=== PATIENT | female | born 1950 | race Caucasian/White ===

== ENCOUNTER 2017-12-05 15:22 | Observation (INO) ==
--- NOTE | 2017-12-05 15:59 | ED ---
HPI General Chief complaint: Neuro Symptoms/Deficit Stated complaint: sent by /luisa neuro Time Seen by Provider: 12/05/17 15:42 History of Present Illness HPI narrative: 66-year-old female with a history of hypertension presents to the ED for evaluation of right-sided facial droop that began last night at around 8 PM. Patient states that the symptoms have been progressively worsening since last night. States that now she is unable to completely close her right eye and the right side of her mouth is drooped. She states that she is here visiting from out of town for 1 week. States that she has been here for 3 days and for the past 3 days she has had runny nose and aggravation of her allergies. She denies any fever, chills, nausea, vomiting, headache, dizziness, lightheadedness, vision loss, numbness or tingling, one-sided weakness. She states that she went to an urgent care and they told her she had Tiwari's palsy but to come here for evaluation. States that her right eye has been aggravating her today as well. No other complaints. Related Data Home Medications Medication Instructions Recorded Confirmed hydrochlorothiazide 12.5 mg PO DAILY 12/05/17 12/05/17 levothyroxine 100 mcg PO DAILY 12/05/17 12/05/17 Allergies Allergy/AdvReac Type Severity Reaction Status Date / Time prednisone Allergy Weakness Verified 12/05/17 15:33 Review of Systems ROS: all other systems reviewed are negative [facility] Social History Social History Substance History: No History of Abuse Second Hand Smoke Exposure: No Smoking Status: Never smoker How Often Do You Have a Drink Containing Alcohol: Never Recent Travel in [facility] within the Last 8 Weeks: No Recent Out of Country Travel within the Last 8 Weeks: No Exam Narrative Exam Narrative: GENERAL: Well-nourished and well-developed pleasant patient in no acute distress who is nontoxic appearing. SKIN: Warm and dry. HEAD: Normocephalic and atraumatic. EYES: No injection, drainage, or hyphema noted. PERRLA. EOMI. fluorescein stain reveals no uptake. Right eye with increased area of uptake over the middle of the cornea. No ulcerations or foreign bodies noted. Visual acuity is equal bilaterally. ENT: No nasal drainage noted. Oropharynx is clear. NECK: Supple and the trachea is midline. CARDIOVASCULAR: Regular rate and rhythm. RESPIRATORY: Breath sounds are equal bilaterally with no accessory muscle use, wheezing, rhonchi, or crackles. GASTROINTESTINAL: Abdomen is soft, non-tender, and nondistended. MUSCULOSKELETAL: No obvious deformities, swelling, cyanosis, or ecchymosis is present throughout the upper and lower extremities. Patient has full range of motion without any signs of neurovascular compromise. Distal pulses are 2+ throughout. Strength 5/5 upper and lower extremities and equal bilaterally. NEUROLOGICAL: Awake, alert, and oriented. Normal speech. Patient is able to wrinkle forehead bilaterally, unable to completely close the right eye or raise the corner of right side of mouth. All other cranial nerves are grossly intact. Normal finger to nose testing. Normal rapid alternating movements. Normal heel to mendoza test. Course Initial Documented Vital Signs Temperature 98.3 F 12/05/17 15: Pulse Rate 84 12/05/17 15: Respiratory Rate 16 12/05/17 15: Blood Pressure 196/87 H 12/05/17 15:27 Pulse Oximetry 96 12/05/17 15:27 Last Documented Vital Signs Temperature 98.3 F 12/05/17 15:27 Pulse Rate 71 12/05/17 18:19 Respiratory Rate 18 12/05/17 18:19 Blood Pressure 207/91 H 12/05/17 18:19 Pulse Oximetry 97 12/05/17 18:19 Medical Decision Making NOLA Attestation NOLA supervised visit: Yes Attestation: Please see mid-level provider note for full history and physical. Briefly patient reports that she developed facial droop and inability to close her right eye on last night. On exam patient had the ability to wrinkle her forehead bilaterally, which made us concerned central lesion. Her head CT was negative. NIH stroke scale was 2 for facial palsy. She is out of the window for TPA secondary to symptoms beginning last night. She stated while she was in the emergency department and her symptoms improved. Dr Live,neurologist public relations account supervisor, advised to admit the patient and give her aspirin 325 mg p.o., admit MD to place a formal consult to him and do an echo. He also recommended MRI brain with and without and MRA neck. He also stated to allow permissive hypertension and treat BP if greater than 210/110. Patient has been admitted to the hospital for further evaluation and management. MDM Narrative Medical decision making narrative: 66-year-old female presents to the ED for evaluation of right-sided facial droop that began last night. Patient is afebrile. Her blood pressure is elevated, repeat reading is 178/80. She states that she did take her blood pressure medication today and typically it is well controlled however she is anxious over her current symptoms. Head CT is negative for any acute abnormalities. CBC is unremarkable. CMP shows mild renal insufficiency with Cr 1.06, GFR 52. Calcium is a little low at 8.4. Troponin is less than 0.02. UA is negative for any acute abnormalities. Coags are unremarkable. Chest x-ray is negative. My attending physician Dr. Garcia spoke with neurologist Dr. Live regarding the patient's presentation. He recommends administration of aspirin 325 mg and admission for stroke work up with MRA neck and MRI brain, echocardiogram. Per Dr. Live he did not recommend treating blood pressure unless over 210/110. My attending physician Dr. Garcia spoke with Dr. Monsivais who accepts patient for admission. Medical Screen Exam Complete: Yes Emergency Medical Condition: Yes Differential Diagnosis Differential Diagnosis: Tiwari's palsy versus CVA versus hypertensive urgency Lab Data Result diagrams: 12/05/17 18:10 12/05/17 18:10 Lab Results 12/05/17 12/05/17 12/05/17 Range/Units 18:10 18:10 18:10 WBC 9.5 (4.0-11.0) th/mm3 RBC 4.65 (4.00-5.30) mil/mm3 Hgb 15.0 (11.6-15.3) gm/dL Hct 42.8 (35.0-46.0) % MCV 92.0 (80.0-100.0) fL MCH 32.3 (27.0-34.0) pg MCHC 35.1 (32.0-36.0) % RDW 13.8 (11.6-17.2) % Plt Count 202 (150-450) th/mm3 MPV 7.8 (7.0-11.0) fL Neut % (Auto) 45.8 (16.0-70.0) % Lymph % (Auto) 40.7 (9.0-44.0) % Hughes % (Auto) 10.0 H (0.0-8.0) % Eos % (Auto) 2.9 (0.0-4.0) % Baso % (Auto) 0.6 (0.0-2.0) % Neut # (Auto) 4.3 (1.8-7.7) th/mm3 Lymph # (Auto) 3.9 (1.0-4.8) th/mm3 Hughes # (Auto) 0.9 (0.0-0.9) th/mm3 Eos # (Auto) 0.3 (0.0-0.4) th/mm3 Baso # (Auto) 0.1 (0.0-0.2) th/mm3 WBC Differential . Differential Comment Auto diff final PT 10.0 (9.8-11.6) sec INR 1.0 Ratio APTT 23.0 L (24.3-30.1) sec Sodium 143 (136-145) meq/L Potassium 4.2 (3.5-5.1) meq/L Chloride 108 H (98-107) meq/L Carbon Dioxide 28.7 (21.0-32.0) meq/L Anion Gap 6 (5-15) meq/L BUN 16 (7-18) mg/dL Creatinine 1.06 H (0.50-1.00) mg/dL Estimated GFR 52 L (>89) mL/min Random Glucose 87 (74-106) mg/dL Calcium 8.4 L (8.5-10.1) mg/dL Total Bilirubin 0.4 (0.2-1.0) mg/dL AST 36 (15-37) U/L ALT 45 (10-53) U/L Alkaline Phosphatase 57 (45-117) U/L Troponin I Less than 0.02 L (0.02-0.05) ng/mL Total Protein 8.1 (6.4-8.2) g/dL Albumin 3.9 (3.4-5.0) g/dL Urine Color (Yellw/Straw) Urine Clarity (Clear) Urine pH (5.0-8.5) Ur Specific [place] (1.002-1.035) Urine Protein (Neg-Trace) mg/dL Urine Glucose (UA) (Negative) mg/dL Urine Ketones (Negative) mg/dL Urine Occult Blood (Negative) Urine Nitrate (Negative) Urine Bilirubin (Negative) Urine Urobilinogen (Less than 2) mg/dL Ur Leukocyte Esterase (Negative) Urine RBC (0-3) /hpf Urine WBC (0-5) /hpf Ur Squamous Epith Cells (0-5) /hpf Urine Bacteria (None) /hpf Micro UA Comment Ur Microscopic Review Urine Culture Comments 12/05/17 Range/Units 18:30 WBC (4.0-11.0) th/mm3 RBC (4.00-5.30) mil/mm3 Hgb (11.6-15.3) gm/dL Hct (35.0-46.0) % MCV (80.0-100.0) fL MCH (27.0-34.0) pg MCHC (32.0-36.0) % RDW (11.6-17.2) % Plt Count (150-450) th/mm3 MPV (7.0-11.0) fL Neut % (Auto) (16.0-70.0) % Lymph % (Auto) (9.0-44.0) % Hughes % (Auto) (0.0-8.0) % Eos % (Auto) (0.0-4.0) % Baso % (Auto) (0.0-2.0) % Neut # (Auto) (1.8-7.7) th/mm3 Lymph # (Auto) (1.0-4.8) th/mm3 Hughes # (Auto) (0.0-0.9) th/mm3 Eos # (Auto) (0.0-0.4) th/mm3 Baso # (Auto) (0.0-0.2) th/mm3 WBC Differential Differential Comment PT (9.8-11.6) sec INR Ratio APTT (24.3-30.1) sec Sodium (136-145) meq/L Potassium (3.5-5.1) meq/L Chloride (98-107) meq/L Carbon Dioxide (21.0-32.0) meq/L Anion Gap (5-15) meq/L BUN (7-18) mg/dL Creatinine (0.50-1.00) mg/dL Estimated GFR (>89) mL/min Random Glucose (74-106) mg/dL Calcium (8.5-10.1) mg/dL Total Bilirubin (0.2-1.0) mg/dL AST (15-37) U/L ALT (10-53) U/L Alkaline Phosphatase (45-117) U/L Troponin I (0.02-0.05) ng/mL Total Protein (6.4-8.2) g/dL Albumin (3.4-5.0) g/dL Urine Color Straw (Yellw/Straw) Urine Clarity Clear (Clear) Urine pH 6.0 (5.0-8.5) Ur Specific [place] 1.009 (1.002-1.035) Urine Protein Negative (Neg-Trace) mg/dL Urine Glucose (UA) Negative (Negative) mg/dL Urine Ketones Negative (Negative) mg/dL Urine Occult Blood Negative (Negative) Urine Nitrate Negative (Negative) Urine Bilirubin Negative (Negative) Urine Urobilinogen Less than 2 (Less than 2) mg/dL Ur Leukocyte Esterase Negative (Negative) Urine RBC 8 H (0-3) /hpf Urine WBC Less than 1 (0-5) /hpf Ur Squamous Epith Cells 1 (0-5) /hpf Urine Bacteria Rare H (None) /hpf Micro UA Comment Culture not ind Ur Microscopic Review Not Reportable Urine Culture Comments Culture not ind Imaging Data Radiologist's impression: Head CT 12/05/17 15:56 CONCLUSION: 1. Negative CT Head non contrast. Chest X-Ray 12/05/17 17:48 CONCLUSION: No acute cardiopulmonary disease. Head MRI 12/05/17 18:34 CONCLUSION: 1. Unremarkable MRI of the brain. Head MRA 12/05/17 18:34 CONCLUSION: 1. No acute findings. origin right posterior cerebral artery. Neck MRA 12/05/17 18:34 CONCLUSION: 1. Negative MRA Carotids. Percent stenosis is calculated using the diameter of the stenotic region over the diameter of the normal distal internal carotid artery Discharge Plan Discharge Disposition Patient Disposition: 30 Still Patient Discharge Details Diagnosis: TIA (transient ischemic attack), Corneal abrasion Physicians Team ED Provider: Dai Garcia ED Midlevel Provider: Margaret Corey Primary Care Provider: UNKNOWN, Attending Provider: Christopher Monsivais Status ED Status: Admitted Observation Patient
--- NOTE | 2017-12-05 16:46 | CT ---
EXAM DATE: 12/05/2017 4:35 PM EDT AGE/SEX: 66 years / Female INDICATIONS: Right sided facial droop onset last night. Right eye pain. CLINICAL DATA: This is the patient's initial encounter. Patient reports that signs and symptoms have been present for 2 days and indicates a pain score of 5/10. MEDICAL/SURGICAL HISTORY: Hypertension. Thyroidectomy. RADIATION DOSE: 56.35 CTDI (mGy) COMPARISON: No prior exams available for comparison. TECHNIQUE: CT of the head without contrast. Using automated exposure control and adjustment of the mA and/or kV according to patient size, radiation dose was kept as low as reasonably achievable to ob tain optimal diagnostic quality images. DICOM format image data is available electronically for revi ew and comparison. FINDINGS: Cerebrum: The ventricles are normal for age. No evidence of midline shift, mass lesion, hemorrhage or acute infarction. No extraaxial fluid collections are seen. Posterior Fossa: The cerebellum and brainstem are intact. The 4th ventricle is midline. The cerebe llopontine angle is unremarkable. Extracranial: The visualized portion of the orbits is intact. Skull: The calvaria is intact. No evidence of skull fracture. CONCLUSION: 1. Negative CT Head non contrast. Electronically signed by: Enrico Campbell MD 12/05/2017 4:45 PM EDT
[2017-12-05 18:24] LABS: Baso # (Auto) 0.1 th/mm3 (0.0-0.2); Baso % (Auto) 0.6 % (0.0-2.0); Eos # (Auto) 0.3 th/mm3 (0.0-0.4); Eos % (Auto) 2.9 % (0.0-4.0); Hematocrit 42.8 % (35.0-46.0); Lymph # (Auto) 3.9 th/mm3 (1.0-4.8); Lymph % (Auto) 40.7 % (9.0-44.0); Mean Corpuscular HGB Conc 35.1 % (32.0-36.0); Mean Corpuscular Hemoglobin 32.3 pg (27.0-34.0); Mean Platelet Volume 7.8 fL (7.0-11.0); Mono # (Auto) 0.9 th/mm3 (0.0-0.9); Neut # (Auto) 4.3 th/mm3 (1.8-7.7); Neut % (Auto) 45.8 % (16.0-70.0); Platelet Count 202 th/mm3 (150-450); Red Blood Count 4.65 mil/mm3 (4.00-5.30); Red Cell Distribution Width 13.8 % (11.6-17.2); White Blood Count 9.5 th/mm3 (4.0-11.0)
[2017-12-05] MEDS ORDERED: Aspirin 325 MG Tablet PO ONE (18:33)
[2017-12-05 18:52] LABS: Alkaline Phosphatase 57 U/L (45-117); Total Protein 8.1 g/dL (6.4-8.2)
--- NOTE | 2017-12-05 18:55 | XR ---
EXAM DATE: 12/05/2017 6:41 PM EDT AGE/SEX: 66 years / Female INDICATIONS: Facial droop, stroke-like symptoms for 24 hours CLINICAL DATA: This is the patient's initial encounter. Patient reports that signs and symptoms have been present for 1 day and indicates a pain score of 0/10. MEDICAL/SURGICAL HISTORY: Hypertension. None. COMPARISON: None.. FINDINGS: A single AP view of the chest demonstrates the lungs to be symmetrically aerated without evidence of mass, infiltrate or effusion. The cardiomediastinal contours are unremarkable. Osseous structures a re intact. CONCLUSION: No acute cardiopulmonary disease. Electronically signed by: Kenny Flowers MD 12/05/2017 6:54 PM EDT
[2017-12-05 19:08] LABS: Bacteria,Urine Rare /hpf; Bilirubin,Urine Negative (Negative); Clarity,Urine Clear (Clear); Color,Urine Straw (Yellw/Straw); Glucose,Urine (UA) Negative (Negative); Leukocyte Esterase,Urine Negative (Negative); Nitrite,Urine Negative (Negative); Specific Gravity,Urine 1.009 (1.002-1.035); Squamous Epithelial Cell,Urine 1 /hpf (0-5)
[2017-12-05 19:14] LABS: Alanine Aminotransferase 45 U/L (10-53); Albumin 3.9 g/dL (3.4-5.0); Anion Gap 6 meq/L (5-15); Aspartate Aminotransferase 36 U/L (15-37); Blood Urea Nitrogen 16 mg/dL (7-18); Calcium 8.4 mg/dL (8.5-10.1); Carbon Dioxide 28.7 meq/L (21.0-32.0); Chloride 108 meq/L (98-107); Glomerular Filtration Rate 52 mL/min (>89); Glucose,Random 87 mg/dL (74-106); Sodium 143 meq/L (136-145)
[2017-12-05 19:18] LABS: Potassium 4.2 meq/L (3.5-5.1)
[2017-12-05] MEDS ORDERED: Gadobutrol PF 10 MMOL/10 ML Vial (for RAD) IV.SIG ONE (19:51)
--- NOTE | 2017-12-05 20:09 | MR ---
EXAM DATE: 12/05/2017 8:00 PM EDT AGE/SEX: 66 years / Female INDICATIONS: Stroke. Facial paralysis mostly on right side since last night. CLINICAL DATA: This is the patient's initial encounter. Patient reports that signs and symptoms have been present for 1 day and indicates a pain score of 3/10. MEDICAL/SURGICAL HISTORY: Carcinoma, thyroid. Hypertension. Tubal ligation. Thyroidectomy. Rt ankle sx. COMPARISON: No prior exams available for comparison. TECHNIQUE: 3D veke-ao-ehdous MRA was performed. Source images, multiplanar STS MIP, and 3D volum e MIP reconstructions were reviewed. FINDINGS: There is excellent visualization of the major intracranial arteries out to the second-order branch ve ssels. There is no evidence for aneurysm, vessel truncation or stenosis, and no evidence for vascula r malformation. CONCLUSION: 1. No acute findings. origin right posterior cerebral artery. Electronically signed by: Alex Jenkins MD 12/05/2017 8:08 PM EDT
[2017-12-05] MEDS ORDERED: Dextrose 50% in Water 50 ML Vial IV.PUSH PRN (20:18)
--- NOTE | 2017-12-05 20:23 | MR ---
EXAM DATE: 12/05/2017 8:15 PM EDT AGE/SEX: 66 years / Female INDICATIONS: Stroke. Facial paralysis mostly on right side since last night. CLINICAL DATA: This is the patient's initial encounter. Patient reports that signs and symptoms have been present for 1 day and indicates a pain score of 4/10. MEDICAL/SURGICAL HISTORY: Carcinoma, thyroid. Hypertension. Tubal ligation. Thyroidectomy. Rt ankle sx. COMPARISON: No prior exams available for comparison. TECHNIQUE: Multiplanar, multisequence examination of the brain was performed without and with 10 ml G adavist (gadobutrol) contrast as a single exam dose. FINDINGS: There is no intracranial mass or midline shift. No hydrocephalus. No abnormal extra-axial fluid colle ctions. No abnormal enhancing lesions are seen postcontrast. CONCLUSION: 1. Unremarkable MRI of the brain. Electronically signed by: Alex Jenkins MD 12/05/2017 8:21 PM EDT
--- NOTE | 2017-12-05 20:41 | MR ---
EXAM DATE: 12/05/2017 8:25 PM EDT AGE/SEX: 66 years / Female INDICATIONS: Stroke. Facial paralysis mostly on right side since last night. CLINICAL DATA: This is the patient's initial encounter. Patient reports that signs and symptoms have been present for 1 day and indicates a pain score of 4/10. MEDICAL/SURGICAL HISTORY: Hypertension. Carcinoma, thyroid. Thyroidectomy. Tubal ligation. Rt ankle sx. COMPARISON: No prior exams available for comparison. TECHNIQUE: 10 ml Gadavist (gadobutrol) contrast infused MRA (single exam dose) of the extracranial circulation was performed using a neurovascular coil. Postprocessing was performed, including rotati ng sub-volume maximum intensity projections of each carotid artery, rotating full-volume maximum inte nsity projections of both carotid arteries, sagittal and coronal sliding thin-slab reformations of ea ch carotid artery, and left oblique sliding thin-slab reformation through the aortic arch to include the origin of the arch branch vessels. FINDINGS: Aortic Arch : There is a three-vessel origin of the great vessels from the aorta. No evidence of o stial narrowing. Right Carotid : The common carotid artery is intact. The carotid bulb has a normal configuration wi thout ulceration or narrowing. The internal carotid artery lumen is smooth without stenosis. The ex ternal carotid artery is intact. Left Carotid : The common carotid artery is intact. The carotid bulb has a normal configuration wit hout ulceration or narrowing. The internal carotid artery lumen is smooth without stenosis. The ext ernal carotid artery is intact. Vertebrals : The vertebral arteries have a symmetric diameter. No stenotic lesions are seen. CONCLUSION: 1. Negative MRA Carotids. Percent stenosis is calculated using the diameter of the stenotic region over the diameter of the nor mal distal internal carotid artery Electronically signed by: Alex Jenkins MD 12/05/2017 8:40 PM EDT
--- NOTE | 2017-12-05 23:23 | P.HPIM ---
History of Present Illness Primary Care Physician: UNKNOWN History of Present Illness: 66-year-old female with a history of hypertension who presents with acute onset right-sided facial droop, perioral numbness beginning last night around 8 PM. She also reports inability to close right eye, with constant sharp pain around the right eye and face. [place] of hayfever type symptoms with runny nose. Denies any lightheadedness or dizziness. Denies any nausea vomiting. Denies any fevers or chills. Review of Systems All other systems reviewed negative except as stated in HPI PMFSH - History History Provided By: Patient - Medical History Medical History: Medical History (Last Updated 12/05/17 @ 23:16 by Christopher Monsivais MD) Hypertension Hypothyroidism - Surgical History Surgical History: Surgical History (Last Reviewed 12/05/17 @ 16:42 by Angi James) H/O thyroidectomy - Family History Family History: Family History (Last Updated 12/05/17 @ 23:16 by Christopher Monsivais MD) Mother Hypertension Cancer Father Cancer - Tobacco History Second Hand Smoke Exposure: Yes Smoking Status: Never smoker - Alcohol History How Often Do You Have a Drink Containing Alcohol: Never - Substance Use History Substance History: No History of Abuse - Travel History Recent Travel in the [place] Within the Last 8 Weeks: No Recent Travel Out of the Country Within the Last 8 Weeks: No - Immunization History Tetanus Immunization: >5 Years Medications and Allergies Active Medications: Active Medications Aspirin (Aspirin Chew) 162 mg PO DAILY ALLEY Ciprofloxacin HCl (Ciloxan 0.3% Opth Drops) 1 drop RIGHT EYE Q4HR ALLEY Dextrose (D50w Vial) 50 ml IV.PUSH UNSCH PRN PRN Reason: PER HYPOGLYCEMIA PROTOCOL Enalaprilat (Vasotec Inj) 1.25 mg IV.PUSH Q4H PRN PRN Reason: For SBP > 220 or DBP > 120 Glucagon (Glucagon Inj) 1 mg OTHER UNSCH PRN PRN Reason: for Hypoglycemia Protocol Insulin Aspart (Novolog Insulin Correctional Sugar Inj) 0 unit SQ ACHS ALLEY; Protocol Levothyroxine Sodium (Synthroid) 100 mcg PO DAILY@0600 ALLEY Sodium Chloride (Ns Flush) 2 ml IV.FLUSH PRN PRN PRN Reason: FLUSH AFTER USING IV ACCESS Sodium Chloride (Ns Flush) 2 ml IV.FLUSH BID ALLEY Last Admin: 12/05/17 22:34 Dose: 2 ml Sodium Chloride (Ns Flush) 2 ml IV.FLUSH PRN PRN PRN Reason: FLUSH AFTER USING IV ACCESS Allergies Allergy/AdvReac Type Severity Reaction Status Date / Time prednisone Allergy Weakness Verified 12/05/17 15:33 Home Medications Medication Instructions Recorded Confirmed Type hydrochlorothiazide 12.5 mg PO DAILY 12/05/17 12/05/17 History levothyroxine 100 mcg PO DAILY 12/05/17 12/05/17 History Exam Vital signs: Vital Signs 12/05/17 15:27 12/05/17 16:45 12/05/17 18:00 Temperature 98.3 F Pulse Rate 84 74 Respiratory Rate 16 18 Blood Pressure 196/87 H 178/80 H Pulse Oximetry 96 97 97 12/05/17 18:08 12/05/17 18:19 12/05/17 21:18 Temperature Pulse Rate 73 71 77 Respiratory Rate 18 16 Blood Pressure 207/91 H 149/70 H Pulse Oximetry 97 Intake & Output 12/05/17 12/05/17 12/06/17 06:59 18:59 06:59 Weight 69.4 kg Narrative: GENERAL: Patient sitting up in bed. Appears comfortable. Alert and oriented x3. SKIN: Warm and dry. HEAD: Atraumatic. Normocephalic. EYES: Pupils equal and round. Slight conjunctival erythema of the right eye. No drainage. ENT: No nasal bleeding or discharge. Mucous membranes pink and moist. NECK: Trachea midline. No JVD. CARDIOVASCULAR: Regular rate and rhythm. RESPIRATORY: No accessory muscle use. Clear to auscultation. Breath sounds equal bilaterally. GASTROINTESTINAL: Abdomen soft, non-tender, nondistended. Hepatic and splenic margins not palpable. MUSCULOSKELETAL: Extremities without clubbing, cyanosis, or edema. No obvious deformities. NEUROLOGICAL: Awake and alert. Pupils equal round reactive to light. Bilateral facial weakness, weakness of right facial muscles motor grossly within normal limits. Five out of 5 muscle strength in the arms and legs. Normal speech. PSYCHIATRIC: Appropriate mood and affect; insight and judgment normal. Results - Labs CBC & Chem 7: 12/05/17 18:10 12/05/17 18:10 Labs: Short CBC 12/05/17 Range/Units 18:10 WBC 9.5 (4.0-11.0) th/mm3 Hgb 15.0 (11.6-15.3) gm/dL Hct 42.8 (35.0-46.0) % Plt Count 202 (150-450) th/mm3 BMP 12/05/17 18:10 Sodium 143 Potassium 4.2 Chloride 108 H Carbon Dioxide 28.7 BUN 16 Creatinine 1.06 H Calcium 8.4 L Cardiac Enzymes 12/05/17 Range/Units 18:10 Troponin I Less than 0.02 L (0.02-0.05) ng/mL Liver Function 12/05/17 Range/Units 18:10 Total Bilirubin 0.4 (0.2-1.0) mg/dL AST 36 (15-37) U/L ALT 45 (10-53) U/L Alkaline Phosphatase 57 (45-117) U/L Albumin 3.9 (3.4-5.0) g/dL Urine 12/05/17 Range/Units 18:30 Urine Color Straw (Yellw/Straw) Urine Clarity Clear (Clear) Urine pH 6.0 (5.0-8.5) Ur Specific [place] 1.009 (1.002-1.035) Urine Protein Negative (Neg-Trace) mg/dL Urine Glucose (UA) Negative (Negative) mg/dL - Imaging Impressions Head CT 12/05/17 15:56 CONCLUSION: 1. Negative CT Head non contrast. Chest X-Ray 12/05/17 17:48 CONCLUSION: No acute cardiopulmonary disease. Head MRI 12/05/17 18:34 CONCLUSION: 1. Unremarkable MRI of the brain. Head MRA 12/05/17 18:34 CONCLUSION: 1. No acute findings. origin right posterior cerebral artery. Neck MRA 12/05/17 18:34 CONCLUSION: 1. Negative MRA Carotids. Percent stenosis is calculated using the diameter of the stenotic region over the diameter of the normal distal internal carotid artery Caprini VTE Risk Assessment Caprini VTE Risk Assessment: Moderate/High Risk (score >= 2) Irineorini Risk Assessment Model: Point Value = 1 Point Value = 2 Point Value = 3 Point Value = 5 Age 41-60 Minor surgery BMI > 25 kg/m2 Swollen legs Varicose veins or History of unexplained or recurrent spontaneous Oral contraceptives or hormone replacement Sepsis (< 1 month) Serious lung disease, including pneumonia (< 1 month) Abnormal pulmonary function Acute myocardial infarction Congestive heart failure (< 1 month) History of inflammatory bowel disease Medical patient at bed rest Age 61-74 Arthroscopic surgery Major open surgery (> 45 min) Laparoscopic surgery (> 45 min) Malignancy Confined to bed (> 72 hours) Immobilizing plaster cast Central venous access Age >= 75 History of VTE Family history of VTE Factor V Leiden Prothrombin [id number] Lupus anticoagulant Anticardiolipin antibodies Elevated serum homocysteine Heparin-induced thrombocytopenia Other congenital or acquired thrombophilia Stroke (< 1 month) Elective arthroplasty Hip, pelvis, or leg fracture Acute spinal cord injury (< 1 month) Prophylaxis Regimen: Total Risk Factor Score Risk Level Prophylaxis Regimen 0-1 Low Early ambulation 2 Moderate Order ONE of the following: *Sequential Compression Device (SCD) *Heparin 5000 units SQ BID 3-4 Higher Order ONE of the following medications: *Heparin 5000 units SQ TID *Enoxaparin/Lovenox 40 mg SQ daily (WT < 150 kg, CrCl > 30 mL/min) *Enoxaparin/Lovenox 30 mg SQ daily (WT < 150 kg, CrCl > 10-29 mL/min) *Enoxaparin/Lovenox 30 mg SQ BID (WT < 150 kg, CrCl > 30 mL/min) AND/OR *Sequential Compression Device (SCD) 5 or more Highest Order ONE of the following medications: *Heparin 5000 units SQ TID (Preferred with Epidurals) *Enoxaparin/Lovenox 40 mg SQ daily (WT < 150 kg, CrCl > 30 mL/min) *Enoxaparin/Lovenox 30 mg SQ daily (WT < 150 kg, CrCl > 10-29 mL/min) *Enoxaparin/Lovenox 30 mg SQ BID (WT < 150 kg, CrCl > 30 mL/min) AND *Sequential Compression Device (SCD) Assessment and Plan - Plan //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 MRA, MRI negative for acute findings. Pending echocardiogram. Patient does have systolic murmur indicative of aortic sclerosis follow-up imaging and neurology recommendations. //Corneal abrasion of the right eye. Antibiotic eyedrops ordered by the ER. Continue. Appreciate assistance. //Hypothyroidism. Continue home medications. //History of hypertension. Permissive hypertension as per discussion between ER physician and neurology. Monitor. Discussed Condition With: Patient, nurse, ED physician.
[2017-12-06] MEDS ORDERED: Ciprofloxacin 0.3% Opth Drops 2.5 ML Bottle RIGHT EYE SCH
[2017-12-06] MEDS: Insulin NovoLOG Aspart Correctional Sugar Inj SQ SCH ×3 (01:27→13:01)
[2017-12-06] MEDS: Ciprofloxacin 0.3% Opth Drops 5 ML Bottle RIGHT EYE SCH ×4 (02:35→13:02)
[2017-12-06] MEDS ORDERED: Levothyroxine 100 MCG Tablet PO SCH (06:00)
[2017-12-06 07:56] LABS: Chol/HDL Ratio 5.15 Ratio; HDL Cholesterol 34.5 mg/dL (40.0-60.0)
[2017-12-06] MEDS ORDERED: Dexamethasone Inj 20 MG/5 ML Vial IV.PUSH STA (08:45)
[2017-12-06] MEDS ORDERED: Famotidine 20 MG Tablet PO STA (08:46)
--- NOTE | 2017-12-06 10:22 | MB ---
cc: Dillon Richmond MD DATE: 12/06/2017 HISTORY OF PRESENT ILLNESS: A 66-year-old right-handed woman with hypertension, hypothyroidism, thyroid cancer in 2006. She does not take an aspirin a day. On Sunday night, she noted that maybe she had some droopiness around her right mouth and then yesterday seemed to involve more of the face. No headache. No history of Lyme disease. No pain behind the ear. No hearing loss. She just came in the hospital. REVIEW OF SYSTEMS: Denies any diabetes; hypercholesterolemia; ME; stent; angioplasty; AFib; Coumadin; renal, hepatic, pulmonary disease; lupus; ulcer; seizure; or stroke. SOCIAL HISTORY: She is not a smoker or a drinker, lives with . FAMILY HISTORY: Positive for cancer in both parents. Negative for seizure or stroke. MEDICATIONS AT HOME: Thyroid medicine, hydrochlorothiazide. She was not on an aspirin a day. PHYSICAL EXAMINATION: VITAL SIGNS: Here, blood pressure was 196/87 down to 142/60. NECK: There were no carotid bruits. HEART: Regular rate and rhythm. I do not detect a murmur. NEUROLOGIC: Pupils are equal. Visual john are full. Extraocular movements intact without nystagmus. She has got a right peripheral facial droop. She still has a little bit of movement on the frontalis and closes her eye about 3[address] just passive eye closure, with a normal sensation on the face bilaterally. Tongue was midline. There was no drift. She had normal strength in upper and lower extremities bilaterally. DTRs are 3+ and symmetric throughout. She tells me she has been hyperreflexive her whole life, even when she was a child. There is no ankle clonus. Toes are downgoing bilaterally. Pinprick is intact throughout. She is not ataxic on [id number]. Speech is fluent. She is not aphasic. DIAGNOSTIC DATA: MRI of the brain was normal. MRA of the neck and [place] were normal. Her CBC was normal. UA was negative. BMP was normal. Glucose 87. LFTs normal. LDL cholesterol 109, total cholesterol 178. I reviewed the MRI of the brain that was in fact normal. I do not see anything around the brainstem on the right side that enhances. IMPRESSION AND PLAN: Right Tiwari palsy. We will just check a B12 and thyroid on her, sedimentation rate. Blood pressure is elevated. She has had some difficulty with high blood pressure before. She may need to be on a statin. I would defer to the med team on that. It looks like she needs to be on a new blood pressure medicine as her blood pressures are high. If her BP can be brought down, she could be discharged later. We could give her a Medrol Dosepak and she can keep an eye on her blood pressure at home. I will just give her 10 of Decadron here and have them call the med team for some blood pressure medicines on her. She should run 120/70. Overall, I thought she looked well neurologically. She should use Lacri-Lube and tape the eye closed. I told her to not patch the eye, but tape the eyelid down when she goes to sleep or has a nap. MD JHONY Martinez/maverick , 08:48 AM , 08:56 AM
--- NOTE | 2017-12-06 13:23 | P.PNIM ---
Subjective Interval history: Negative workup for CVA. Etiology found to be related to Tiwari's palsy. Steroids started. Patient has a past history of problems with prednisone which included hypertensive urgency. Decadron is initiated as a treatment. Patient' s blood pressure is slightly increased to 140 systolic. She is medically stable and cleared for discharge to home, she will be provided with Decadron prescription at time of discharge. Clonidine prescription is also provided to use on an as-needed basis if she has hypertensive urgency again with this different formulation of steroid. If hypertensive urgency becomes a big enough problem patient is instructed to discontinue the steroids medically stable and cleared for discharge home today. Physical Exam Vital signs: Vital Signs 12/05/17 15:27 12/05/17 16:45 12/05/17 18:00 Temperature 98.3 F Pulse Rate 84 74 Respiratory Rate 16 18 Blood Pressure 196/87 H 178/80 H Pulse Oximetry 96 97 97 12/05/17 18:08 12/05/17 18:19 12/05/17 21:18 Temperature Pulse Rate 73 71 77 Respiratory Rate 18 16 Blood Pressure 207/91 H 149/70 H Pulse Oximetry 97 12/05/17 23:18 12/06/17 04:20 12/06/17 08:00 Temperature 98.1 F 98.0 F 98.5 F Pulse Rate 68 72 76 Respiratory Rate 16 16 16 Blood Pressure 153/76 H 142/60 H 165/90 H Pulse Oximetry 95 95 95 12/06/17 12:00 12/06/17 13:00 Temperature 98.4 F Pulse Rate 74 76 Respiratory Rate 18 Blood Pressure 116/61 141/69 H Pulse Oximetry 96 Intake & Output 12/05/17 12/06/17 12/06/17 18:59 06:59 18:59 Weight 69.4 kg 69.4 kg Other: Weight On Admission 69.4 kg Narrative: GENERAL: NAD, A&Ox3 HEAD: Normocephalic. NECK: Supple, trachea midline. No lymphadenopathy. EYES: No scleral icterus. No injection or drainage. CARDIOVASCULAR: Regular rate and rhythm without murmurs, gallops, or rubs. RESPIRATORY: Breath sounds equal bilaterally. No accessory muscle use. GASTROINTESTINAL: Abdomen soft, non-tender, nondistended. MUSCULOSKELETAL: No cyanosis, or edema. SKIN: Warm and dry. NEURO: Right-sided facial droop from Tiwari's palsy Results - Labs CBC & Chem 7: 12/05/17 18:10 12/05/17 18:10 Laboratory Results - last 24 hr 12/05/17 12/05/17 12/05/17 18:10 18:10 18:10 WBC 9.5 RBC 4.65 Hgb 15.0 Hct 42.8 MCV 92.0 MCH 32.3 MCHC 35.1 RDW 13.8 Plt Count 202 MPV 7.8 Neut % (Auto) 45.8 Lymph % (Auto) 40.7 [place] % (Auto) 10.0 H Eos % (Auto) 2.9 Baso % (Auto) 0.6 Neut # (Auto) 4.3 Lymph # (Auto) 3.9 [place] # (Auto) 0.9 Eos # (Auto) 0.3 Baso # (Auto) 0.1 WBC Differential . Differential Comment Auto diff final ESR PT 10.0 INR 1.0 APTT 23.0 L Sodium 143 Potassium 4.2 Chloride 108 H Carbon Dioxide 28.7 Anion Gap 6 BUN 16 Creatinine 1.06 H Estimated GFR 52 L POC Glucose Random Glucose 87 Calcium 8.4 L Total Bilirubin 0.4 AST 36 ALT 45 Alkaline Phosphatase 57 Troponin I Less than 0.02 L Total Protein 8.1 Albumin 3.9 Triglycerides Cholesterol LDL Cholesterol, Calc HDL Cholesterol Cholesterol/HDL Ratio TSH Urine Color Urine Clarity Urine pH Ur Specific [place] Urine Protein Urine Glucose (UA) Urine Ketones Urine Occult Blood Urine Nitrate Urine Bilirubin Urine Urobilinogen Ur Leukocyte Esterase Urine RBC Urine WBC Ur Squamous Epith Cells Urine Bacteria Micro UA Comment Ur Microscopic Review Urine Culture Comments 12/05/17 12/05/17 12/06/17 18:30 23:45 06:28 WBC RBC Hgb Hct MCV MCH MCHC RDW Plt Count MPV Neut % (Auto) Lymph % (Auto) [place] % (Auto) Eos % (Auto) Baso % (Auto) Neut # (Auto) Lymph # (Auto) [place] # (Auto) Eos # (Auto) Baso # (Auto) WBC Differential Differential Comment ESR PT INR APTT Sodium Potassium Chloride Carbon Dioxide Anion Gap BUN Creatinine Estimated GFR POC Glucose 91 Random Glucose Calcium Total Bilirubin AST ALT Alkaline Phosphatase Troponin I Total Protein Albumin Triglycerides 175 H Cholesterol 178 LDL Cholesterol, Calc 109 H HDL Cholesterol 34.5 L Cholesterol/HDL Ratio 5.15 TSH Urine Color Straw Urine Clarity Clear Urine pH 6.0 Ur Specific [place] 1.009 Urine Protein Negative Urine Glucose (UA) Negative Urine Ketones Negative Urine Occult Blood Negative Urine Nitrate Negative Urine Bilirubin Negative Urine Urobilinogen Less than 2 Ur Leukocyte Esterase Negative Urine RBC 8 H Urine WBC Less than 1 Ur Squamous Epith Cells 1 Urine Bacteria Rare H Micro UA Comment Culture not ind Ur Microscopic Review Not Reportable Urine Culture Comments Culture not ind 12/06/17 12/06/17 11:06 11:06 WBC RBC Hgb Hct MCV MCH MCHC RDW Plt Count MPV Neut % (Auto) Lymph % (Auto) [place] % (Auto) Eos % (Auto) Baso % (Auto) Neut # (Auto) Lymph # (Auto) [place] # (Auto) Eos # (Auto) Baso # (Auto) WBC Differential Differential Comment ESR 8 PT INR APTT Sodium Potassium Chloride Carbon Dioxide Anion Gap BUN Creatinine Estimated GFR POC Glucose Random Glucose Calcium Total Bilirubin AST ALT Alkaline Phosphatase Troponin I Total Protein Albumin Triglycerides Cholesterol LDL Cholesterol, Calc HDL Cholesterol Cholesterol/HDL Ratio TSH 3.680 Urine Color Urine Clarity Urine pH Ur Specific [place] Urine Protein Urine Glucose (UA) Urine Ketones Urine Occult Blood Urine Nitrate Urine Bilirubin Urine Urobilinogen Ur Leukocyte Esterase Urine RBC Urine WBC Ur Squamous Epith Cells Urine Bacteria Micro UA Comment Ur Microscopic Review Urine Culture Comments - Imaging Impressions Head CT 12/05/17 15:56 CONCLUSION: 1. Negative CT Head non contrast. Chest X-Ray 12/05/17 17:48 CONCLUSION: No acute cardiopulmonary disease. Head MRI 12/05/17 18:34 CONCLUSION: 1. Unremarkable MRI of the brain. Head MRA 12/05/17 18:34 CONCLUSION: 1. No acute findings. origin right posterior cerebral artery. Neck MRA 12/05/17 18:34 CONCLUSION: 1. Negative MRA Carotids. Percent stenosis is calculated using the diameter of the stenotic region over the diameter of the normal distal internal carotid artery Assessment and Plan - Plan 66-year-old female admitted secondary to CVA versus Tiwari's palsy, negative for CVA on workup Tiwari's palsy Negative workup for CVA Decadron initiated as a steroid (hypertensive urgency prednisone reaction in the past) No further CVA workup Decadron taper provided at discharge As needed clonidine provided should she have hypertensive urgency again No significant immediate reaction to Decadron during testing here Patient instructed to discontinue medication of hypertensive urgency begins and accelerates Corneal abrasion, right eye Antibiotic eyedrops Hypothyroidism Continue baseline treatments Follows an outpatient Hypertension Continue baseline treatment Follow blood pressures Adjust treatments as needed Discharge planning Patient medically cleared for discharge home today
--- NOTE | 2017-12-06 14:27 | ECG ---
Date Performed: 12/05/2017 Time Performed: 18:16:47 PTAGE: 66 years EKG: Sinus rhythm MODERATE VOLTAGE CRITERIA FOR LVH, CONSIDER NORMAL VARIANT MODERATE T-WAVE ABNORMALITY, CONSIDER LAT ERAL ISCHEMIA ABNORMAL ECG NO PREVIOUS TRACING DOCTOR: Luis Antonio Tomas Interpretating Date/Time 12/06/2017 14:25:54
[2017-12-06 16:25] LABS: Hemoglobin A1c 5.5 % (4.3-6.0)
== END 2017-12-06 15:00 | disposition home or self-care (01) ==
LOC: NEPC 15:22 → NEDA 15:22 → NEPGCP 22:38
PROVIDERS: ADMIT Hospitalist; ATTEND Hospitalist